=== PATIENT | female | born 1995 | race Hispanic/Latino ===

== ENCOUNTER 2020-11-27 20:55 | Outpatient (CLI) | payer OTHER, MEDICAID ==
[2020-11-27 21:44] VITALS: BP 133/68
[2020-11-27] MEDS ORDERED: LACTATED RINGERS 500 ML IV ONE (22:35)
== END 2020-11-28 00:58 | disposition home or self-care (01) ==
LOC: TRG 20:55 → APU 20:57 → TRG 11-28 00:58
PROVIDERS: ATTEND Obstetrics & Gynecology
DX: O62.9 Abnormality of forces of labor, unspecified (principal); Z3A.30 30 weeks gestation of pregnancy
CPT/HCPCS: 59025; 96365; J0690; J7120; 96360